=== PATIENT | female | born 2000 | race African-American/Black ===

== ENCOUNTER 2019-03-31 21:05 | Emergency (ER) | payer MEDICAID ==
[~2019-03-31] VITALS: Ht 157.5 cm; Wt 78.9 kg
[~2019-03-31 21:05] MED LIST: NAPR500T31
[2019-03-31 21:40] LABS: Basophils # (auto) 0 uL; Basophils % (auto) 0.1 % (0.0-2.0); Eosinophils # (auto) 0.6 uL; Lymphocytes # (auto) 1.7 uL; Monocytes # (auto) 0.9 uL; Neutrophils % (auto) 74.1 % (37.0-80.0)
[2019-03-31 21:42] LABS: Eosinophils % (auto) 5.1 % (0.0-7.0); Hematocrit 31.1 % (36.0-46.0); Lymphocytes % (auto) 13.7 % (10.0-50.0); Mean Corpuscular Hemoglobin 25.4 pg (28.0-32.0); Mean Corpuscular Hgb Conc. 32.3 g/dL (32.0-36.0); Mean Corpuscular Volume 78.9 fL (80.0-100.0); Nucleated Red Blood Cells % 0.1 %; Platelet Count (auto) 263 10^3/uL (140-450); Red Blood Cells 3.94 10^6/uL (4.0-5.20); White Blood Cell 12.1 10^3/uL (4.4-10.8)
[2019-03-31 21:43] LABS: Red Cell Distribution Width 20.8 % (11.8-14.3)
[2019-03-31 21:53] LABS: Urine Bacteria MANY /hpf (None Seen); Urine Blood Negative /uL (Negative); Urine Mucus FEW (None Seen); Urine Specific Gravity 1.018 (1.001-1.035); Urine WBC 8 /hpf (0 - 5)
[2019-03-31 21:57] LABS: INR 0.92 (0.9-1.15)
[2019-03-31 21:58] LABS: Alanine Aminotransferase 22 U/L (13-56); Albumin 2.7 g/dL (3.4-5.0); Anion Gap 10 (5-15); Aspartate Aminotransferase 13 U/L (15-37); BUN/Creatinine Ratio 11.9; Blood Urea Nitrogen 8 mg/dL (7-18); Calcium 8.7 mg/dL (8.5-10.1); Carbon Dioxide 23 mmol/L (21-32); Chloride 108 mmol/L (98-107); GFR African American 144 mL/min; GFR Non-African American 119 mL/min; Glucose 109 mg/dL (74-106); Magnesium 1.7 mg/dL (1.6-2.6); Potassium 3.1 mmol/L (3.5-5.1); Sodium 141 mmol/L (136-145)
[2019-03-31 22:00] LABS: Alkaline Phosphatase 72 U/L (45-117); Bilirubin, Total < 0.1 mg/dL (0.2-1.0); Total Protein 7.2 g/dL (6.4-8.2)
[2019-04-01] MEDS ORDERED: SODIUM CHLORIDE 0.9% 1,000 ML IV ONE (07:30)
[2019-04-01 07:40] LABS: Basophils # (auto) 0 uL; Basophils % (auto) 0.2 % (0.0-2.0); Eosinophils # (auto) 0.8 uL
[2019-04-01 07:42] LABS: Eosinophils % (auto) 6.1 % (0.0-7.0); Hematocrit 29.6 % (36.0-46.0); Hemoglobin 9.7 g/dL (12.2-16.2); Lymphocytes # (auto) 1.5 uL; Lymphocytes % (auto) 11.7 % (10.0-50.0); Mean Corpuscular Hemoglobin 25.8 pg (28.0-32.0); Mean Corpuscular Hgb Conc. 32.8 g/dL (32.0-36.0); Mean Corpuscular Volume 78.7 fL (80.0-100.0); Monocytes # (auto) 1.1 uL; Monocytes % (auto) 8.8 % (0.0-12.0); Neutrophils # (auto) 9.5 uL; Neutrophils % (auto) 73.2 % (37.0-80.0); Platelet Count (auto) 246 10^3/uL (140-450); Red Blood Cells 3.76 10^6/uL (4.0-5.20); White Blood Cell 12.9 10^3/uL (4.4-10.8)
[2019-04-01 08:21] LABS: Albumin 2.5 g/dL (3.4-5.0); BUN/Creatinine Ratio 15.2; Calcium 8.3 mg/dL (8.5-10.1); Potassium 3.4 mmol/L (3.5-5.1)
[2019-04-01 08:23] LABS: Bilirubin, Total 0.1 mg/dL (0.2-1.0); Total Protein 6.7 g/dL (6.4-8.2)
[2019-04-01 08:47] VITALS: BP 111/59
== END 2019-04-01 09:09 | disposition home or self-care (01) ==
LOC: ER 21:07
DX: O23.42 Unspecified infection of urinary tract in pregnancy, second trimester (principal); O22.42 Hemorrhoids in pregnancy, second trimester; Z3A.27 27 weeks gestation of pregnancy
CPT/HCPCS: 36415; 76805; 80053; 81001; 83735; 84702; 85025; 85610; 85730

== ENCOUNTER 2020-05-10 14:16 | Emergency (ER) | payer MEDICAID ==
[~2020-05-10] VITALS: Ht 157.5 cm; Wt 80.7 kg
[2020-05-10 15:03] VITALS: BP 130/85
== END 2020-05-10 16:25 | disposition home or self-care (01) ==
LOC: ER 14:16
DX: J35.8 Other chronic diseases of tonsils and adenoids (principal)

== ENCOUNTER 2020-08-09 18:48 | Emergency (ER) | payer MEDICAID ==
[~2020-08-09] VITALS: Ht 157.5 cm; Wt 71.7 kg
[2020-08-09 22:24] LABS: Basophils # (auto) 0 10 ^3/uL (0-0.2); Basophils % (auto) 0.2 % (0.0-2.0); Eosinophils # (auto) 0.1 10 ^3/uL (0-0.8); Eosinophils % (auto) 0.3 % (0.0-7.0); Hematocrit 33.8 % (36.0-46.0); Hemoglobin 10.4 g/dL (12.2-16.2); Lymphocytes # (auto) 1.8 10 ^3/uL (0.4-5.4); Lymphocytes % (auto) 8.6 % (10.0-50.0); Mean Corpuscular Hemoglobin 20.6 pg (28.0-32.0); Mean Corpuscular Hgb Conc. 30.7 g/dL (32.0-36.0); Mean Corpuscular Volume 67.2 fL (80.0-100.0); Monocytes # (auto) 1.3 10 ^3/uL (0-1.3); Monocytes % (auto) 5.9 % (0.0-12.0); Platelet Count (auto) 568 10^3/uL (140-450); Red Blood Cells 5.02 10^6/uL (4.0-5.20); Red Cell Distribution Width 16.8 % (11.8-14.3); White Blood Cell 21.2 10^3/uL (4.4-10.8)
[2020-08-09 22:43] LABS: Albumin 3.8 g/dL (3.4-5.0); Calcium 9.3 mg/dL (8.5-10.1)
[2020-08-09 22:46] LABS: BUN/Creatinine Ratio 7.8
[2020-08-09 22:48] LABS: Bilirubin, Total 0.4 mg/dL (0.2-1.0); Total Protein 9.1 g/dL (6.4-8.2)
[2020-08-09 22:55] LABS: Potassium 2.9 mmol/L (3.5-5.1)
[2020-08-10] MEDS ORDERED: SODIUM CHLORIDE 0.9% 1,000 ML IV ONE (01:45)
[2020-08-10] MEDS ORDERED: ONDANSETRON HCL 4 MG/2 ML VIAL IV ONE (01:45)
[2020-08-10] MEDS ORDERED: POTASSIUM CHL 20MEQ/100ML 100 ML IV ONE (01:45)
[2020-08-10] MEDS ORDERED: MORPHINE SULFATE 4 MG/ML SYR/VIAL IV ONE (01:45)
[2020-08-10] MEDS ORDERED: IOHEXOL 300 MG/ML 100ML BOTTLE IJ ONE (02:01)
[2020-08-10 03:26] LABS: Urine Bacteria FEW /hpf (None Seen); Urine Blood Negative /uL (Negative); Urine Hyaline Cast MANY /lpf (0 - 2); Urine Mucus FEW (None Seen); Urine WBC 2 /hpf (0 - 5)
[2020-08-10 04:51] VITALS: BP 118/88
== END 2020-08-10 04:57 | disposition home or self-care (01) ==
LOC: ER 18:57
DX: K52.9 Noninfective gastroenteritis and colitis, unspecified (principal); Z32.02 Encounter for pregnancy test, result negative
CPT/HCPCS: 36415; 74177; 80053; 81001; 81025; 82150; 83605; 83690; 84702; 85025; 96361; 96374; 96375; 99285; J2270; J2405; J3480; Q9967

== ENCOUNTER 2022-04-22 19:45 | Emergency (ER) | payer MEDICAID ==
[~2022-04-22] VITALS: Ht 157.5 cm; Wt 79.8 kg
[2022-04-22 22:32] LABS: Urine Bacteria NONE SEEN /hpf (None Seen); Urine Blood 3+ /uL (Negative); Urine Mucus FEW (None Seen); Urine Specific Gravity 1.016 (1.001-1.035); Urine WBC 27 /hpf (0 - 5)
[2022-04-23] MEDS ORDERED: CIPROFLOXACIN HCL 500 MG TAB PO ONE (08:15)
[2022-04-23] MEDS ORDERED: NAP500T PO (10:29)
[2022-04-23] MEDS ORDERED: CIPR-173 PO (10:29)
[2022-04-23 10:49] VITALS: BP 105/58
== END 2022-04-23 10:48 | disposition home or self-care (01) ==
LOC: ER 19:45
DX: N39.0 Urinary tract infection, site not specified (principal); M54.50 Low back pain, unspecified
CPT/HCPCS: 81001

== ENCOUNTER 2025-02-20 21:30 | Emergency (ER) | payer MEDICAID ==
[~2025-02-20] VITALS: Ht 157.5 cm; Wt 56.0 kg
[~2025-02-20 21:30] MED LIST changes: +CIPR-173 PO; +NAP500T PO; +NAPR-746; -NAPR500T31
--- NOTE | 2025-02-20 21:50 | ED.PDOC ---
History of Present Illness HPI Comments 24-year-old female who came to ER due to abnormal labs. Patient has history of iron-deficiency anemia, used to take iron supplements, currently on iron infusion, however she has been unable to get her iron for the past few weeks. Patient feeling fatigued most of the time, but denies any headaches, dizziness or shortness a breath. Patient was at urgent care earlier, noted hemoglobin levels of 6.5. Patient denies any active bleeding at this time of care, however she does have episodes of melena before. Denies any heavy vaginal bleeding. Patient does have history of blood transfusion Chief Complaint: Abnormal labs Time Seen by MD: 21:50 Primary Care Provider: TERRY Reviewed Notes: Nurses Notes Allergies: Coded Allergies: NO KNOWN ALLERGIES (Unverified , 03/22/13) Home Meds Active Scripts Potassium Chloride (K-Tab) 20 Meq Tab, 20 MEQ PO DAILY for 30 Days, #30 TAB Prov:ALEJANDRO HENSLEY MD 02/20/25 Ferrous Sulfate (FERROUS SULFATE) 325 Mg Tb, 1 TAB PO DAILY for 90 Days, #90 TAB 3 Refills Prov:ALEJANDRO HENSLEY MD 02/20/25 Naproxen (NAPROSYN TABLET) 500 Mg Tb, 1 TAB PO BID for 10 Days, #20 TAB 1 Refill Prov:HAYLIE FRANCIS MD 04/23/22 Ciprofloxacin Hcl (Cipro) 500 Mg Tab, 1 TAB PO BID for 10 Days, #20 TAB Prov:HAYLIE FRANCIS MD 04/23/22 Reported Medications [[id number] Mg] (Naproxen) 500 MG TAB No Conflict Check, MG 03/22/13 Information Source: Patient Mode of Arrival: Ambulatory Severity: Moderate Timing: Days Duration: Intermittent Past Medical History PAST MEDICAL HISTORY: Anemia Past Medical History (Other): Iron deficiency anemia, colitis Surgical History: Denies all surgeries [facility] History: No Pertinent [facility] History Family History Family History: Reviewed,noncontributory to illness Social History Smoker: Non-Smoker Alcohol: Denies ETOH Use Drugs: Marijuana Lives In: Home Constitutional: reports: fatigue; denies: chills, diaphoresis, fever, malaise, sweats, weakness, others EENTM: denies: blurred vision, double vision, ear bleeding, ear discharge, ear drainage, ear pain, ear ringing, eye pain, eye redness, hearing loss, mouth pain, mouth swelling, nasal discharge, nose bleeding, nose congestion, nose pain, photophobia, tearing, throat pain, throat swelling, voice changes, others Respiratory: denies: cough, hemoptysis, orthopnea, SOB at rest, shortness of breath, SOB with excertion, stridor, wheezing, others Cardiovascular: denies: chest pain, dizzy spells, diaphoresis, Dyspnea on exertion, edema, irregular heart beat, left arm pain, lightheadedness, palpitations, PND, syncope, others Gastrointestinal: denies: abdomen distended, abdominal pain, blood streaked bowels, constipated, diarrhea, dysphagia, difficulty swallowing, hematemesis, melena, nausea, poor appetite, poor fluid intake, rectal bleeding, rectal pain, vomiting, others Genitourinary: denies: abnormal vagina bleeding, burning, dyspareunia, dysuria, flank pain, frequency, hematuria, incontinence, pain, , vagina discharge, urgency, others Neurological: denies: dizziness, fainting, headache, left sided numbness, left sided weakness, numbness, paresthesia, pre-existing deficit, right sided numbness, right sided weakness, seizure, speech problems, tingling, tremors, weakness, others Musculoskeletal: denies: back pain, gout, joint pain, joint swelling, muscle pain, muscle stiffness, neck pain, others Integumetry: denies: bruises, change in color, change in hair/nails, dryness, laceration, lesions, lumps, rash, wounds, others Allergic/Immunocompromised: denies: Difficulty Healing, Frequent Infections, Hives, Itching, others Hematologic/Lymphatic: denies: anemia, blood clots, easy bleeding, easy bruising, swollen glands, others Endocrine: denies: excessive hunger, excessive sweating, excessive thirst, excessive urination, flushing, intolerance to cold, intolerance to heat, unexplained weight gain, unexplained weight loss, others Psychiatric: denies: anxiety, bipolar disorder, depression, hopeless, panic disorder, schizophrenia, sleepless, suicidal, others Physical Exam General Appearance: No Apparent Distress, Normal HEENT: Normal ENT Inspection, Pharynx Normal, TMs Normal Neck: Full Range of Motion, Non-Tender, Normal, Normal Inspection Respiratory: Chest Non-Tender, Lungs Clear, No Accessory Muscle Use, No Respiratory Distress, Normal Breath Sounds Cardiovascular: No Edema, No JVD, No Murmur, No Gallop, Normal Peripheral Pulses, Regular Rate/Rhythm Breast Exam: Deferred Gastrointestinal: No Organomegaly, Non Tender, No Pulsatile Mass, Normal Bowel Sounds, Soft Genitalia: Deferred Pelvic: Deferred Rectal: Deferred Extremities: No calf tenderness, Normal capillary refill, Normal inspection, Normal range of motion, Non-tender, No pedal edema Musculoskeletal : Apperance: Normal Neurologic: Alert, topology professor II-XII nml as Tested, No Motor Deficits, Normal Affect, Normal Mood, No Sensory Deficits Cerebellar Function: Normal Reflexes: Normal Skin: Dry, Normal Color, Warm Lymphatic: No Adenopathy Was a procedure done? Was a procedure done?: No Differential Dx Considerations may include: Anemia, electrolyte imbalance, GI bleed X-Ray, Labs, Meds, VS Vital Signs Date Time Temp Pulse Resp B/P (MAP) Pulse Ox O2 Delivery O2 Flow Rate FiO2 02/21/25 00:00 97.9 88 22 122/71 (88) 99 97.9 02/20/25 22:24 97.9 02/20/25 21:58 98.5 89 19 122/86 (98) 100 98.5 02/20/25 21:58 89 19 100 Room Air* 0 21 02/20/25 21:47 98.2 97 16 111/81 (91) 98 98.2 Lab Test 02/20/25 22:13 Range/Units White Blood Count 21.5 H 4.4-10.8 10^3/uL Red Blood Count 5.04 4.0-5.20 10^6/uL Hemoglobin 8.6 L 12.2-16.2 g/dL Hematocrit 29.4 L 36.0-46.0 % Mean Corpuscular Volume 58.3 L 80.0-100.0 fL Mean Corpuscular Hemoglobin 17.0 L 28.0-32.0 pg Mean Corpuscular Hemoglobin Concent 29.2 L 32.0-36.0 g/dL Red Cell Distribution Width 19.9 H 11.8-14.3 % Platelet Count 574 H 140-450 10^3/uL Mean Platelet Volume 8.7 6.9-10.8 fL Neutrophils (%) (Auto) 87.2 H 37.0-80.0 % Lymphocytes (%) (Auto) 8.3 L 10.0-50.0 % Monocytes (%) (Auto) 4.2 0.0-12.0 % Eosinophils (%) (Auto) 0.1 0.0-7.0 % Basophils (%) (Auto) 0.2 0.0-2.0 % Neutrophils # (Auto) 18.8 H 1.6-8.6 10 ^3/uL Lymphocytes # (Auto) 1.8 0.4-5.4 10 ^3/uL Monocytes # (Auto) 0.9 0-1.3 10 ^3/uL Eosinophils # (Auto) 0 0-0.8 10 ^3/uL Basophils # (Auto) 0 0-0.2 10 ^3/uL Nucleated Red Blood Cells 0.0 % Platelet Estimate Increased Large Platelets Few Giant Platelets Few Hypochromasia (manual) Marked Anisocytosis (manual) Slight Microcytosis Marked Prothrombin Time 11.6 9.3-11.8 sec Prothrombin Time INR 1.11 0.9-1.15 Activated Partial Thromboplast Time 25.7 24.5-34.5 SEC Sodium Level 136 136-145 mmol/L Potassium Level 3.2 L 3.5-5.1 mmol/L Chloride Level 103 98-107 mmol/L Carbon Dioxide Level 20 20-31 mmol/L Anion Gap 13 5-15 Blood Urea Nitrogen 10 9-23 mg/dL Creatinine 0.78 0.550-1.02 mg/dL Glomerular Filtration Rate Calc 107 >90 mL/min BUN/Creatinine Ratio 12.8 10.0-20.0 Serum Glucose 98 74-106 mg/dL Calcium Level 9.4 8.7-10.4 mg/dL Total Bilirubin 0.4 0.2-1.0 mg/dL Aspartate Amino Transferase (AST) 10 L 13-40 U/L Alanine Aminotransferase (ALT) < 9 7-40 U/L Alkaline Phosphatase 122 H 46-116 U/L Total Protein 9.3 H 5.7-8.2 g/dL Albumin 4.3 3.2-4.8 g/dL Current Medications Medications (Trade) Dose Ordered Sig/Mehreen Route Start Time Stop Time Status Last Admin Sodium Chloride 500 ml @ 500 mls/hr Q1H ONCE IVB 02/20/25 22:15 02/20/25 23:14 DC 02/20/25 22:20 Ondansetron HCl (Zofran) 4 mg ONCE ONCE IV 02/20/25 22:30 02/20/25 22:31 DC 02/20/25 22:24 Acetaminophen (Tylenol Tablet) 1,000 mg ONCE ONCE PO 02/20/25 22:30 02/20/25 22:31 DC 02/20/25 22:24 Potassium Chloride (Klor-Con Tablet) 20 meq ONCE ONCE PO 02/20/25 23:15 02/20/25 23:17 DC 02/20/25 23:48 Time of 1ST Reevaluation: 21:45 Reevaluation 1ST: Unchanged Patient Education/Counseling: Diagnosis, Treatment Family Education/Counseling: No Family Present Departure 1 Departure Time of Disposition: 23:00 Impression: Primary Impression: Microcytic anemia Additional Impression: Hypokalemia Disposition: 01 HOME / SELF CARE / HOMELESS Condition: Stable e-Prescriptions Potassium Chloride (K-Tab) 20 Meq Tab 20 MEQ PO DAILY for 30 Days, #30 TAB Prov: ALEJANDRO HENSLEY MD 02/20/25 Ferrous Sulfate (FERROUS SULFATE) 325 Mg Tb 1 TAB PO DAILY for 90 Days, #90 TAB 3 Refills Prov: ALEJANDRO HENSLEY MD 02/20/25 Discharged With: Self Critical Care Note Critical Care Time?: Yes (35 min-critical care time only) Critical care comment: Severe anemia Stability Stability form required: No Heart Score Heart Score: Heart Score Response (Comments) Value History N/A 0 EKG N/A 0 Age N/A 0 Risk Factors N/A 0 Troponin N/A 0 Total 0 I personally scribed for ALEJANDRO HENSLEY MD ([email or web address]) on 02/20/25 at 21:50. Electronically submitted by Dakotah Tucker ([email or web address]). ALEJANDRO HENSLEY MD Feb 20, 2025 21:50
[2025-02-20 21:58] VITALS: PULSE 89; RESP 19; O2SAT 100
[2025-02-20] MEDS: SODIUM CHLORIDE 0.9% 500 ML IVB ONE (22:20)
[2025-02-20] MEDS: ONDANSETRON HCL 4 MG/2 ML VIAL IV ONE (22:24)
[2025-02-20] MEDS: ACETAMINOPHEN 325 MG TAB PO ONE (22:24)
[2025-02-20 22:47] LABS: Albumin 4.3 g/dL (3.2-4.8); Anion Gap 13 (5-15); BUN/Creatinine Ratio 12.8 (10.0-20.0); Bilirubin, Total 0.4 mg/dL (0.2-1.0); Blood Urea Nitrogen 10 mg/dL (9-23); Calcium 9.4 mg/dL (8.7-10.4); Carbon Dioxide 20 mmol/L (20-31); Chloride 103 mmol/L (98-107); Glucose 98 mg/dL (74-106); Sodium 136 mmol/L (136-145)
[2025-02-20 22:56] LABS: INR 1.11 (0.9-1.15); Partial Thromboplastin Time 25.7 SEC (24.5-34.5); Prothrombin Time 11.6 sec (9.3-11.8)
[2025-02-20 23:00] LABS: Alanine Aminotransferase < 9 U/L (7-40); Alkaline Phosphatase 122 U/L (46-116); Aspartate Aminotransferase 10 U/L (13-40); Potassium 3.2 mmol/L (3.5-5.1); Total Protein 9.3 g/dL (5.7-8.2)
[2025-02-20 23:06] LABS: Eosinophils # (auto) 0 10 ^3/uL (0-0.8); Hematocrit 29.4 % (36.0-46.0); Hemoglobin 8.6 g/dL (12.2-16.2); Mean Corpuscular Volume 58.3 fL (80.0-100.0); Red Blood Cells 5.04 10^6/uL (4.0-5.20); Red Cell Distribution Width 19.9 % (11.8-14.3)
[2025-02-20 23:07] LABS: Basophils # (auto) 0 10 ^3/uL (0-0.2); Basophils % (auto) 0.2 % (0.0-2.0); Eosinophils % (auto) 0.1 % (0.0-7.0); Lymphocytes # (auto) 1.8 10 ^3/uL (0.4-5.4); Lymphocytes % (auto) 8.3 % (10.0-50.0); Mean Corpuscular Hgb Conc. 29.2 g/dL (32.0-36.0); Monocytes # (auto) 0.9 10 ^3/uL (0-1.3); Monocytes % (auto) 4.2 % (0.0-12.0); Neutrophils # (auto) 18.8 10 ^3/uL (1.6-8.6); Neutrophils % (auto) 87.2 % (37.0-80.0); Platelet Count (auto) 574 10^3/uL (140-450); White Blood Cell 21.5 10^3/uL (4.4-10.8)
[2025-02-20] MEDS ORDERED: POTA1TAB4 PO (23:20)
[2025-02-20] MEDS ORDERED: FER325T PO (23:20)
[2025-02-20 23:44] LABS: Hypochromia Marked
[2025-02-20 23:45] LABS: Anisocytosis Slight; Giant Platelets Few; Large Platelets FEW; Platelet Estimate Increased
[2025-02-20] MEDS: POTASSIUM CHL 20 Meq TABLET PO ONE (23:48)
[2025-02-21] VITALS: BP 122/71; PULSE 88; RESP 22; TEMP 97.9; O2SAT 99
== END 2025-02-21 00:19 | disposition home or self-care (01) ==
LOC: ER 21:35
DX: D50.9 Iron deficiency anemia, unspecified (principal); E87.6 Hypokalemia; R06.02 Shortness of breath; Z79.899 Other long term (current) drug therapy
CPT/HCPCS: 36415; 80053; 85025; 85610; 85730; 86850; 86900; 86901; 96361; 96374; 99283; J2405; J7040; 81001